=== PATIENT | female | born 1965 | race Caucasian/White ===

== ENCOUNTER 2021-12-13 02:29 | Emergency (ER) | payer OTHER, MEDICAID, SELFPAY ==
[2021-12-13 02:36] VITALS: BP 140/70; PULSE 68; RESP 18; TEMP 36.2; O2SAT 100
--- NOTE | 2021-12-13 02:41 | ED_ITS ---
HPI - Extremity Problem General Chief complaint: Skin/Abscess/Foreign Body Stated complaint: Bite by bug and left arm is hurting Time Seen by Provider: 12/13/21 02:41 History of Present Illness HPI Narrative: 56-year-old female nonsmoker with noncontributory medical history presents with a chief complaint of an insect bite just prior to her arrival on her left forearm. She states that she had been in her normal state of health and she felt a sharp pinch on her left forearm, she immediately removed her arm from the sweat sugar and noticed a small bleeding bite federica on her left forearm and she immediately shook out her shirt. She states she saw some insect wings fall out onto the floor, but didn't not see an insect or spider or other. She then states her whole arm began to hurt and she felt dizzy. She then noted a purple streak just distal to the wound and decided to come and get seen. She denies any fever or chills. She has no head or neck pain. She denies chest pain, shortness of breath, N/V Related Data Previous Rx's Medication Instructions Recorded ketorolac 10 mg tablet 10 mg PO Q6H PRN #14 tab 12/13/21 Patient History Social History Smoking Status: Never smoker Exam Narrative Exam Narrative: GEN: AOx3 and in mild distress, anxious EYES: Pupils are equal, round, and reactive to light and accommodation. Extraoccular muscles are intact bilaterally. There is no subconjunctival hemorrhage or exudate. NECK: no midline tenderness, stepoffs, worsening with axial load CHEST: Lungs are clear to auscultation bilaterally and free of wheezes, rales, or rhonchi. Heart rate is regular rhythm, there are no murmurs, clicks, rubs, or gallops. There is no chest wall tenderness. ABD: Abdomen is soft and nontender. There is no guarding or rebound. Bowel s ounds are normal in all 4 quadrants. There is no mass or organomegaly. EXT: Full painless ROM of all extremities with no loss of sensation or strength. LUE with full 5/5 strength and sensation. Pulses 2+ and cap refill <2 sec. Small puncture midforearm with drop of dried blood. No surrounding erythema, edema, or fluctuance. A small arc shaped purple streak noted distal to puncture by a few centimeters. SKIN: Warm, pink, and dry. No erythema or rash Initial Vital Signs Initial Vital Signs: Vital Signs Temperature 97.2 F L 12/13/21 02:36 Pulse Rate 68 12/13/21 02:36 Respiratory Rate 18 12/13/21 02:36 Blood Pressure 140/70 12/13/21 02:36 Pulse Oximetry 100 12/13/21 02:36 Course Orders Ordered: Discontinued Medications Ketorolac Tromethamine (Ketorolac 30 Mg/Ml Vial) 30 mg IM NOW ONE Stop: 12/13/21 02:52 Last Admin: 12/13/21 02:56 Dose: 30 mg Documented by: Vital Signs Vital signs: Vital Signs - 8 hr 12/13/21 02:36 Temperature 97.2 F L Pulse Rate 68 Respiratory Rate 18 Blood Pressure 140/70 Pulse Oximetry 100 MDM - Extremity (Nontraumatic) MDM Narrative Medical decision making narrative: Multiple etiologies for patient's symptoms considered including: [Insect bite versus infection versus DVT versus other Infection considered, however history and exam would suggest against this given her bite just prior to her arrival. DVT considered given sudden onset and arm full arm pain, but no swelling, erythema, warmth noted. Cervical radiculopathy considered, but no tingling, weakness, change with axial load or other classic finding Findings and discharge diagnosis discussed with patient/family followed by verbalization of understanding Return precautions discussed with patient/family whom verbalize understanding. Discharge Plan Departure Patient Disposition: Home Clinical Impression: Insect bites Instructions: DI for Insect Bites and Stings Activity Restrictions/Additional Instructions: *You have been diagnosed with [left arm pain from insect bite or sting. As we discussed there is no indication or suggestion of infection, blood clot or other alternative diagnosis at this point time *What to do: *Please continue to take your regular medications as directed. [x ] New medication prescriptions sent to your pharmacy: [[facility] ] [ ] New medication written as a paper prescription [ ] No new medications given *Please follow up with your primary care provider in 2-3 days, call for an appointment. Let them know you were seen in the Emergency Department and that we ask that you be seen in follow up. We will electronically transmit a record of today's note if your PCP is in our system *If you do not have a primary care provider please contact the [facility] Resource line at [phone]. They will ask some questions about your medical history and help get you set up with a doctor in the community. *Return to Emergency Department if you should have any new, worsening or concerning symptoms, such as [fever greater than 101 F, shaking chills, worsening pain, persistent vomiting or other bothersome symptoms] Prescriptions: New ketorolac 10 mg tablet 10 mg PO Q6H PRN (Reason: pain) Qty: 14 0RF
--- NOTE | 2021-12-13 02:45 | PC.NURSE ---
pt c/o bug bite to the left wrist no obvious signs of injury no swelling, pt states her arm is hurting
[2021-12-13] MEDS: KETOROLAC 30 MG/ML VIAL IM (02:56)
== END 2021-12-13 03:28 | disposition home or self-care (01) ==
PROVIDERS: Emergency Provider Emergency Medicine
DX: S50.862A Insect bite (nonvenomous) of left forearm, initial encounter (principal); W57.XXXA Bitten or stung by nonvenomous insect and other nonvenomous arthropods, initial encounter
CPT/HCPCS: 96372; 99283; J1885

== ENCOUNTER 2024-03-15 04:05 | Emergency (ER) | payer OTHER, MEDICAID, SELFPAY ==
[2024-03-15] VITALS (8 sets, daily range): BP systolic 138–167; BP diastolic 67–92; PULSE 53–67; RESP 13–22; TEMP 36.3; O2SAT 96–100; BMI 30.5
--- NOTE | 2024-03-15 04:23 | DI.CT.S_ITS ---
PROCEDURE: CT HEAD/BRAIN WO CON INDICATIONS: worsening headaches, vertigo x 3 wks TECHNIQUE: Noncontrast 4.5 mm thick angled axial sections acquired from the foramen magnum to the vertex, with coronal and sagittal reformats. For radiation dose reduction, the following was used: automated exposure control, adjustment of mA and/or kV according to patient size. COMPARISON: None. FINDINGS: Image quality: Diagnostic. CSF spaces: Basal cisterns are patent. No extra-axial fluid collections. Ventricles are normal in size and shape. Brain: No midline shift. No intracranial masses or hemorrhage. Pineda-white matter interface is normal. Skull and face: Calvarium and visualized facial bones are intact, without suspicious lesions. Sinuses: Visualized sinuses and mastoids are clear. IMPRESSION: No acute intracranial pathology. Agree with preliminary report. Dictated by: Dalton Salter M.D. on 03/15/2024 at 8:13 Approved by: Dalton Salter M.D. on 03/15/2024 at 8:19
--- NOTE | 2024-03-15 04:23 | DI.RAD.S_ITS ---
PROCEDURE: XR CHEST 1V INDICATIONS: chest pain TECHNIQUE: One view of the chest was acquired. COMPARISON: None. FINDINGS: Surgical changes and devices: None. Lungs and pleura: Lungs are clear. No pleural effusions or pneumothorax. Mediastinum: Mediastinal contours appear normal. Heart size is normal. Bones and chest wall: No suspicious bony lesions. Overlying soft tissues appear unremarkable. IMPRESSION: No acute cardiopulmonary abnormality is seen. Agree with preliminary report. Dictated by: Dalton Salter M.D. on 03/15/2024 at 8:19 Approved by: Dalton Salter M.D. on 03/15/2024 at 8:20
--- NOTE | 2024-03-15 04:24 | ED.CHESTPAIN ---
HPI - Chest Pain General Chief Complaint: Chest Pain Stated Complaint: chest pain, blood pressure high, pulse high Time Seen by Provider: 03/15/24 04:07 Source: patient Mode of arrival: Ambulatory History of Present Illness HPI narrative: 58-year-old female presents for chest pain, vertigo, general unwell feeling for the last 2-3 weeks, worsening over the last 2-3 days. Last week patient's saw her primary care doctor, who performed an EKG, and told her that it was normal. She was told that if her symptoms worsen she should come to the emergency department. Related Data Previous Rx's Medication Instructions Recorded ketorolac 10 mg tablet 10 mg PO Q6H PRN pain #14 tabs 12/13/21 Allergies Allergy/AdvReac Type Severity Reaction Status Date / Time No Known Drug Allergies Allergy Verified 03/15/24 04:20 Patient History Social History Smoking Status: Never smoker Smoking Status: Never smoker alcohol intake frequency: a few times a month Substance Use Type: marijuana Exam Initial Vital Signs Initial Vital Signs: Vital Signs Pulse Rate 66 03/15/24 04:15 Pulse Oximetry 96 03/15/24 04:15 Const: Awake, alert, no acute distress, nontoxic appearing Cardiac: regular rate, regular rhythm Chest: Generalized tenderness to palpation along anterior chest wall, no crepitus RESP: unlabored, clear bilaterally, no wheezing Skin: Warm, Dry, intact, no rashes Neuro: AO x3, CN II-XII grossly intact, moves all extremities Course Orders Ordered: ED Orders 03/15/24 04:23 CT head/brain wo con Stat Chest [XR chest 1V] Stat EKG-12 Lead Stat 03/15/24 04:31 BNP [NT-proBNP (BNP-Adult 18+)] Stat CBC Auto Diff [Complete Blood Count AUTO DIFF] Stat CMP [Comprehensive Metabolic Panel] Stat MAG [Magnesium] Stat PT [Prothrombin Time INR] Stat Troponin & CK Cardiac Panel Stat Vital Signs Vital signs: Vital Signs - 8 hr 03/15/24 04:15 03/15/24 04:16 03/15/24 04:16 Temperature Pulse Rate 66 64 Respiratory Rate Blood Pressure 162/92 H Pulse Oximetry 96 100 Oxygen Delivery Method 03/15/24 04:20 03/15/24 04:30 03/15/24 04:31 Temperature 97.3 F L Pulse Rate 61 67 59 L Respiratory Rate 16 22 14 Blood Pressure 162/92 H Pulse Oximetry 100 100 100 Oxygen Delivery Method Room Air Room Air 03/15/24 04:31 03/15/24 04:46 03/15/24 04:46 Temperature Pulse Rate 53 L Respiratory Rate Blood Pressure 167/81 H 149/67 H Pulse Oximetry 100 Oxygen Delivery Method 03/15/24 05:00 03/15/24 05:00 Temperature Pulse Rate 60 Respiratory Rate 18 Blood Pressure 143/69 H Pulse Oximetry 98 Oxygen Delivery Method Room Air MDM - Chest Pain Lab Data 03/15/24 04:31 03/15/24 04:31 Labs: Lab Results 03/15/24 Range/Units 04:31 WBC 7.0 (4.5-11.0) X10^3/uL RBC 4.22 (4.0-5.2) X10^6/uL Hgb 12.3 (12.0-16.0) g/dL Hct 37.2 (36-46) % MCV 88.2 (80-100) fL MCH 29.2 (26-34) PG MCHC 33.1 (30-36) % RDW 13.4 (11.6-14.8) % Plt Count 217 (150-400) X10^3/uL Neut % (Auto) 40.1 L (50-75) % Lymph % (Auto) 43.4 H (25-40) % Mckean % (Auto) 9.0 (3-14) % Eos % (Auto) 6.9 H (2-4) % Baso % (Auto) 0.6 (0-2) % Neut # (Auto) 2800 (6711-1766) /uL Lymph # (Auto) 3100 (1137-3267) /uL Mckean # (Auto) 600 (0-900) /uL Eos # (Auto) 500 H (0-450) /uL Baso # (Auto) 0 (0-100) /uL PT 10.1 (9.4-12.5) SECONDS INR 0.9 (0.9-1.3) Sodium 137 (137-145) mmol/L Potassium 3.8 (3.4-5.1) mmol/L Chloride 103 (98-107) mmol/L Carbon Dioxide 27 (22-32) mmol/L BUN 26 H (7-17) mg/dL Creatinine 0.97 (0.52-1.04) mg/dL Estimated GFR > 60 (>60) mL/min BUN/Creatinine Ratio 26.8 H (6-22) Glucose 98 (70-100) mg/dL Calcium 9.4 (8.4-10.2) mg/dL Magnesium 2.1 (1.6-2.3) mg/dL Total Bilirubin 0.4 (0.2-1.3) mg/dL AST 29 (14-36) IU/L ALT 20 (<35) IU/L Alkaline Phosphatase 62 (38-126) U/L Total Creatine Kinase 171 H (30-135) U/L Troponin I < 0.012 (0.01-0.034) ng/mL NT-Pro-B Natriuret Pep 52 (<125) pg/mL Total Protein 7.2 (6.3-8.2) g/dL Albumin 4.6 (3.5-5.0) g/dL Globulin 2.6 (1.7-4.1) g/dL Albumin/Globulin Ratio 1.8 (1.0-2.8) Imaging Data Chest x-ray: Radiologist's Impression: Preliminary read: Borderline cardiomegaly without pulmonary edema CT scan - head: Radiologist's Impression: Preliminary read: No acute abnormalities. ECG Data Interpretation: Sinus bradycardia at 58 beats per minute. Normal MI. No ST T wave changes, no STEMI MDM Narrative Medical decision making narrative: Well-appearing patient with persistent anterior chest wall pain. Patient has reproducible tenderness to palpation, she states that this is usually referred from her chronic neck pain that is being treated by her primary care doctor. EKG sinus bradycardia without concerning findings. Patient reports vertigo symptoms. She states that she currently is experiencing vertigo, but was witnessed ambulatory through the emergency department without any difficulty, she drove herself to the emergency department without any difficulty as well. No focal deficits on exam. Laboratory work and imaging without significant abnormalities. Patient perhaps has mild cardiomegaly on chest x-ray without other concerning findings. Troponin undetectable. Patient informed of all lab and imaging findings, recommended PCP follow up. Patient states that she has an appointment with her PCP on and she will discuss the results of her ER workup with them at that time. Discharge Plan Departure Patient Disposition: Home Clinical Impression: Chest pain Instructions: DI for Chest Pain Activity Restrictions/Additional Instructions: Your EKG today did not show any abnormal findings. Your laboratory work was normal and your troponin was undetectable. Because you were complaining of vertigo symptoms a CT of your head was ordered, that did not show any concerning findings. Follow up as scheduled with your primary care doctor. You may discuss the possibility of being referred to Cardiology if you continue to experience chest pains. Prescriptions: No Action ketorolac 10 mg tablet 10 mg PO Q6H PRN (Reason: pain) Qty: 14 0RF Referrals: Olaf Knox ARNP [Primary Care Provider] - Stand Alone Forms: Patient Portal/API
--- NOTE | 2024-03-15 04:31 | PC.NURSE ---
See triage note. Pt has had this similar issues for 3 weeks. Seen by PCP about 1 week ago, no known cause.
[2024-03-15 04:40] LABS: Add Manual Diff / Slide Review NO; Basophils Absolute Auto 0 /uL (0-100); Basophils Percent Auto 0.6 % (0-2); Eosinophils Absolute Auto 500 /uL (0-450); Eosinophils Percent Auto 6.9 % (2-4); Hematocrit 37.2 % (36-46); Hemoglobin 12.3 g/dL (12.0-16.0); Lymphocytes Absolute Auto 3100 /uL (1100-4500); Lymphocytes Percent Auto 43.4 % (25-40); Mean Corpuscular HGB Conc 33.1 % (30-36); Mean Corpuscular Hemoglobin 29.2 PG (26-34); Mean Corpuscular Volume 88.2 fL (80-100); Monocytes Absolute Auto 600 /uL (0-900); Neutrophils Absolute Auto 2800 /uL (1500-7000); Neutrophils Percent Auto 40.1 % (50-75); Platelet Count 217 X10^3/uL (150-400); Red Blood Cell Count 4.22 X10^6/uL (4.0-5.2); Red Cell Distribution Width 13.4 % (11.6-14.8)
[2024-03-15 04:48] LABS: INR 0.9 (0.9-1.3); Prothrombin Time 10.1 SECONDS (9.4-12.5)
--- NOTE | 2024-03-15 04:51 | EKG_ITS ---
[address] [address] Test Date: 2024-03-15 Pat Name: Vinita Constantino Department: [facility] Room: Gender: Female Facilities Coordinator: SHARATH : 1965 Requested By: Order Number: [id number] Reading MD: Mark Constantino Measurements Intervals [place] Rate: 58 P: 43 [place]: 158 QRS: 23 QRSD: 88 T: 36 QT: 424 QTc: 416 Interpretive Statements Sinus bradycardia with sinus arrhythmia Electronically Signed On 03-15-2024 12:34:14 PDT by Mark Constantino
[2024-03-15 04:52] LABS: Creatine Kinase 171 U/L (30-135); Magnesium 2.1 mg/dL (1.6-2.3)
[2024-03-15 04:54] LABS: Alanine Aminotransferase 20 IU/L (<35); Albumin 4.6 g/dL (3.5-5.0); Albumin Globulin Ratio 1.8 (1.0-2.8); Alkaline Phosphatase 62 U/L (38-126); Aspartate Aminotransferase 29 IU/L (14-36); BUN Creatinine Ratio 26.8 (6-22); Bilirubin Total 0.4 mg/dL (0.2-1.3); Blood Urea Nitrogen 26 mg/dL (7-17); Calcium 9.4 mg/dL (8.4-10.2); Carbon Dioxide 27 mmol/L (22-32); Chloride 103 mmol/L (98-107); Estimated Glomerular Filt Rate > 60 mL/min (>60); Globulin 2.6 g/dL (1.7-4.1); Glucose 98 mg/dL (70-100); HEMOLYSIS < 15 (0-50); Potassium 3.8 mmol/L (3.4-5.1); Sodium 137 mmol/L (137-145); Total Protein 7.2 g/dL (6.3-8.2)
[2024-03-15 05:05] LABS: NT-proBNP (BNP-Adult 18+) 52 pg/mL (<125); Troponin I < 0.012 ng/mL (0.01-0.034)
== END 2024-03-15 05:58 | disposition home or self-care (01) ==
PROVIDERS: Emergency Provider Emergency Medicine; PCP Registered Nurse
DX: R07.89 Other chest pain (principal); R00.1 Bradycardia, unspecified; R42 Dizziness and giddiness; R51.9 Headache, unspecified
CPT/HCPCS: 36415; 70450; 71045; 80053; 82550; 83735; 83880; 84484; 85025; 85610; 93005; 99283; 99284